=== PATIENT | female | born 1945 | race Caucasian/White ===

== ENCOUNTER 2018-07-23 11:01 | Inpatient (IN) ==
[2018-07-23] MEDS ORDERED: NS 1,000 ML IV ONE ×3 (11:10→13:32)
[2018-07-23 12:21] LABS: BILIRUBIN URINE NEGATIVE (NEGATIVE); BLOOD URINE 4+ (NEGATIVE); CLARITY CLEAR (CLEAR); COLOR YELLOW; GLUCOSE URINE NEGATIVE (NEGATIVE); KETONE URINE 2+(Moderate) mg/dL (NEGATIVE); LEUKOCYTES URINE TRACE (NEGATIVE); NITRITE URINE NEGATIVE (NEGATIVE); PROTEIN URINE TRACE mg/dL (NEGATIVE); URINE BACTERIA 1+ /HFP; URINE EPITHELIAL CELLS <10 /HPF (<10); URINE RBC TNTC /HPF (<10); URINE SOURCE CATH; UROBILINOGEN URINE NORMAL
[2018-07-23 12:26] LABS: BE -1.7 mmoll (-3.0-3.0); BLOOD TYPE ARTERIAL; HCO3-(ACT) 23.6 mmoll (20.0-26.0); INFLUENZA A NEGATIVE (NEGATIVE); INFLUENZA B NEGATIVE (NEGATIVE); METHB 0.9 % (0.0-1.5); O2(CT) 15.8 mL/dL (15.0-23.0); O2HB 96.1 % (95.0-99.0); PCO2(98.6) 27 mmHg (35-45); PO2(98.6) 88 mmHg (60-100); SAMPLE BLOOD; SAO2 98.8 % (95.0-100.0); THB 11.6 g/dL (11.5-17.4); pH(98.6) 7.49 (7.35-7.45)
[2018-07-23 12:29] LABS: ALLEN TEST YES; MODALITY ROOM AIR
[2018-07-23] MEDS ORDERED: ROCEPHIN 1 GM in NS 50 ML IV ONE (12:57)
[2018-07-23 13:11] LABS: INR 1.05; PROTIME 14.2 Seconds (11.0-16.0)
[2018-07-23 13:14] LABS: HEMATOCRIT 30.1 % (37.0-47.0); HEMOGLOBIN 10.6 g/dL (12.0-16.0); IMM GRAN# 0.01 X1000 (0.0-0.04); IMM GRAN% 0.2 % (0.0-0.5); LYMPH# 0.67 X1000 (1.2-3.4); MCH 32.8 PG (27-31); MCHC 35.2 g/dL (33-37); MCV 93.2 FL (81-99); MONO# 0.84 X1000 (0.11-0.59); MONO% 13.7 % (1.7-9.3); NEUT# 4.59 X1000 (1.4-6.5); NEUT% 75.1 % (42.2-75.2); PLT 238 X1000 (130-400); RBC 3.23 XMIL (4.2-5.4); RDW 13.1 % (11.5-14.5); WBC 6.11 X1000 (4.8-10.8)
[2018-07-23 13:20] LABS: ESTIMATED GFR > 60
[2018-07-23 13:28] LABS: AGAP 13; ALKALINE PHOSPHATASE 78 U/L (32-104); BUN 9 mg/dL (8-22); CALCIUM 8.4 mg/dL (8.8-10.2); CHLORIDE 85 mmol/L (98-107); COSMO 237; CREATININE 0.4 mg/dL (0.5-0.9); GLUCOSE 92 mg/dL (70-104); GOT 45 U/L (10-30); GPT 21 U/L (10-36); MAGNESIUM 1.7 mg/dL (1.5-2.7); PHOSPHORUS 2.3 mg/dL (2.7-4.5); POTASSIUM 4.7 mmol/L (3.5-5.1); SODIUM 118 mmol/L (136-145); TCO2 21 mmol/L (25-35); TOTAL PROTEIN 6.4 g/dL (6.3-8.3)
--- NOTE | 2018-07-23 13:38 | PROVIDER DOCUMENTATION ---
This chart was entered by Mary Dale Scribe, acting as scribe for Elliott Nuñez MD. HPI-General Adult - General Chief Complaint: Altered Mental Status Stated Complaint: AMS,WEAK Time Seen by Provider: 07/23/18 11:10 Source: patient, family, EMS Allergies/Adverse Reactions: Patient Allergies Allergy/AdvReac Type Severity Reaction Status Date / Time Penicillins Allergy Mild Unknown Verified 07/23/18 11:09 Home Medications: Home Medication List Medication Instructions Recorded Confirmed Last Taken Type Azelastine 137 Mcg Nasal Freedom 2 spray TERESA BID 05/03/18 05/03/18 05/02/18 09:00 History [Astelin Nasal Freedom] 2 sprays Donepezil HCl 10 mg PO QHS 05/03/18 05/03/18 05/02/18 21:00 History 10mg Fluticasone 27.5 Mcg Nasal Spr 2 spray TERESA DAILY 05/03/18 05/03/18 05/02/18 09: 00 History [Veramyst Nasal Freedom] 2 sprays Hyoscyamine [Levsin] 0.125 mg SL BID 05/03/18 05/03/18 05/02/18 21:00 History 0.125mg Montelukast [Singulair] 10 mg PO QHS 05/03/18 05/03/18 05/02/18 21:00 History 10 mg Oxybutynin [Ditropan] 5 mg PO TID 05/03/18 05/03/18 05/02/18 21:00 History 5mg PRAVAstatin [Pravachol] 20 mg PO DAILY 05/03/18 05/03/18 05/02/18 09:00 History 20mg Alprazolam [Xanax] 0.5 mg PO QHS #30 tab 05/10/18 Unknown Rx Linezolid [Zyvox] 600 mg PO Q12HR #20 tab 05/10/18 Unknown Rx - History of Present Illness -Gen Adult Nature of Presenting Problems: 73 y/o female presents to ED with AMS, confusion, and diarrhea. Family reports she has been more confused than normal the past few days. Pt repeatedly states she is hurting in her groin region. Pt is alert. Location of Pain/Injury: reports: other (groin) Pain Radiation: reports: no radiation Quality of Pain: reports: aching Severity: reports: mild Onset/Duration: reports: unsure, 2 days ago, 3 days ago Timing: reports: still present Context/Activities at Onset: reports: none Modifying Factors: improves with: nothing Associated Symptoms: reports: diarrhea, other (groin pain, AMS, confusion) Similar Symptoms Previously?: Yes (with previous UTI) Recently seen or treated by another doctor?: No Review of Systems - Adult - REVIEW OF SYSTEMS - ADULT Constitutional: reports: other (AMS, confusion). denies: chills, fever Eyes: reports: no symptoms reported Ears, Nose, Mouth & Throat: reports: no symptoms reported Cardiovascular: denies: chest pain, palpitations Respiratory: denies: cough, shortness of breath Gastrointestinal: reports: diarrhea. denies: abdominal pain, nausea, vomiting Genitourinary: reports: no symptoms reported Musculoskeletal: reports: other (groin pain). denies: back pain, joint pain Integumentary: reports: no symptoms reported Neurological: denies: dizziness/vertigo, seizure Psychiatric: reports: no symptoms reported Endocrine: reports: no symptoms reported Hematologic/Lymphatic: reports: no symptoms reported Allergic/Immunologic: reports: no symptoms reported All Other Systems: Reviewed and Negative Past History - Adult - PAST MEDICAL HISTORY-ADULT Review of Records: reports: Old Records Reviewed, Nursing Assessment Review, Medications Reviewed Major Childhood Illnesses: reports: denies history Cardiovascular: reports: HTN Respiratory: reports: cancer Obstetrical/Gynecological: reports: other (breast cancer) Genitourinary: reports: kidney stones Neurological: reports: cancer/tumor (brain), CVA Other Conditions: reports: cataract/glaucoma - PRIOR SURGERIES/PROCEDURES Surgical/Procedure History: reports: BTL, breast (mastectomy), other (L lung, lithrotripsy, cataract removal) - IMMUNIZATION STATUS Childhood Immunizations: See Nurse Assessment Flu Vaccine: See Nurse Assessment - FAMILY HISTORY Family History: reviewed, not pertinent - SOCIAL HISTORY Smoking: non-smoker Substance Use: none/never Alcohol Use Frequency: never Living Situation: family Physical Exam-General - PHYSICAL EXAM-ADULT Initial Vital Signs Reviewed: Yes - CONSTITUTIONAL General Appearance: appears well, alert, no apparent distress, anxious, other ( agitated) - EYES Eyes: pink conjunctivae, other (pinpoint pupils) - HEAD, EARS, NOSE, MOUTH & THROAT HENMT: normocephalic/atraumatic, normal ENT inspection. negative: moist mucous membranes (dry) - NECK Neck: non-tender, full range of motion - RESPIRATORY Respiratory: chest non-tender, lungs clear, normal breath sounds - CARDIOVASCULAR Cardiovascular: normal peripheral pulses, regular rate, rhythm, systolic murmur (07/25) - GASTROINTESTINAL (ABDOMEN) Abdominal Exam: normal bowel sounds, non tender, soft - MUSCULOSKELETAL Back Exam: normal inspection, no CVA tenderness Extremity: normal range of motion, non-tender, normal gait - SKIN Integumentary: normal color, warm/dry, other (port in R upper chest). negative : normal turgor (poor) - NEUROLOGIC Neurologic: no motor/sensory deficits, facial droop (L sided) - PSYCHIATRIC Psych/Mental Status: normal mood/affect, normal thought content, normal thought process, anxious Progress - PLAN OF CARE/RESULTS Progress/Plan/Lab Results: Vital Signs - 8 hr 07/23/18 11:02 Pulse Rate 73 Respiratory Rate 20 Blood Pressure 168/72 O2 Sat by Pulse Oximetry 97 Orders Category Date Time Status Saline Loc NOW Care 07/23/18 11:07 Active CHEST-PORTABLE [RAD] Stat Exams 07/23/18 11:[address] HEAD W/WO CONTRAST [CT] Stat Exams 07/23/18 11:08 Ordered PELVIS [RAD] Stat Exams 07/23/18 11:09 Ordered ABG [RESP] Routine Lab 07/23/18 11:07 Ordered BLOOD CULTURE [BLDCUL] Stat Lab 07/23/18 11:07 Uncollected CBC WITH ELECTRONIC DIFF [HEME] Stat Lab 07/23/18 11:07 Uncollected COMPREHENSIVE METABOLIC PANEL [CHEM] Stat Lab 07/23/18 11:[address] Stat Lab 07/23/18 11:08 Uncollected LACTATE, PLASMA [CHEM] Stat Lab 07/23/18 11:08 Uncollected MAGNESIUM [CHEM] Stat Lab 07/23/18 11:08 Uncollected PRO B-NATRIURETIC PEPTIDE Stat Lab 07/23/18 11:08 Uncollected PROTIME WITH INR [COAG] Stat Lab 07/23/18 11:08 Uncollected TROPONIN T Stat Lab 07/23/18 11:08 Uncollected TSH Stat Lab 07/23/18 11:[address] W/POSS RFLX CULT [URINALYSIS] Stat Lab 07/23/18 11:08 Uncollected phos [PHOSPHORUS] [CHEM] Stat Lab 07/23/18 11:08 Uncollected Ns 1000 ml IV Bolus X1 Med 07/23/18 11:10 Ordered 0.9% Sodium Chloride Inj [Ns] 1,000 ml IV 999 mls/hr EKG [EKG] Stat Ther 07/23/18 11:07 Ordered Result Diagrams: 07/23/18 12:30 07/23/18 12:30 - REASSESSMENT Reassessment #1 Time Reassessed: 13:36 Status: improving (Given NS bolus 1000ml then 100ml/hr. Given IV rocephin. States feels better. Less agitated and confused) - EKG 1 Time of EKG reading by physician:: 11:10 EKG Read and Signed by:: Elliott Nuñez EKG Interpretation (*Must complete 3 of following elements*): Abnormal Rate: 72 Rhythm: Sinus w/ 1st degree AV block [place]: normal QRS: normal [place] Interval: normal ST Wave: non-specific ST changes Comments: Artifact present. -Dr. Nuñez - CONSULTS/PCP/HOSPITALIST Notification #1 *Consult/PCP/Hospitalist*: Kenny paged at 1107 and again 1215 Time Discussed: 12:56 (Dr. Cox's RN says he's been out of town for the last several weeks and still out of town. Yesterday PET scan showed on old sternal fracture and no active malignancy) Consult Disposition: other #2 Consult: penot Time Discussed: 13:37 Consult Disposition: Will see in ED Departure - Departure Date of Disposition Decision: 07/23/18 Time of Disposition Decision: 13:37 DIAGNOSIS: Dehydration with hyponatremia, UTI (urinary tract infection) due to Enterococcus Altered mental status, unspecified Qualifiers: Altered mental status type: delirium Qualified Code(s): R41.0 - Disorientation , unspecified Disposition: ADMITTED INPATIENT 09 Certified Medical Emergency: Emergent Condition: Fair Referrals and Follow-Ups: Erasto Angeles III, MD [NON-STAFF PROVIDER] - - Critical Care Note This patient required my direct & personal management of CC.: Yes Total Time (mins): 40 Critical Care Statement: This patient required my direct personal management to treat or rule out processes, the absence of which, could potentiallly result in sudden, clinically significant life or limb threatening deterioration. Attestation - Physician/ MATTIE Attestation Patient care was provided by Advanced Practice Provider:: No The physician spent face to face time with patient:: Yes Advanced Practice Provider documentation review:: Supervising physician onsite and consulted in the evaluation and care of this patient. The physician did have a face to face encounter with the patient. This chart was documented by the indicated scribe, (Mary Dale Scribe) and accurately reflects the services I performed and decisions made by me, Elliott Nuñez MD, as attested by the provider's signature.
[2018-07-23] MEDS ORDERED: BENADRYL IV ONE (13:39)
[2018-07-23] MEDS ORDERED: HALDOL IV ONE (13:39)
--- NOTE | 2018-07-23 14:31 | Diag Imaging Result Doc PS360 ---
EXAM: CT HEAD W/WO CONTRAST 07/23/2018 HISTORY: ams, hx of brain mets, left facial droop TECHNIQUE: This exam was performed using automated exposure control, adjustment of mA or kV according to patient size, and/or use of iterative reconstruction technique. COMMENT: There is mild generalized cerebral atrophy. There are patchy lucencies throughout the white matter of both hemispheres. No evidence of bleed or abnormal extra-axial fluid collection is present. There is no evidence of mass effect. There is some calcification in the globus pallidus on the left. There is no evidence of abnormal contrast enhancement. Compared to 12/09/2016 the appearance the brain has not changed appreciably. IMPRESSION: Chronic ischemic microvascular disease. No evidence of acute disease or metastatic disease. Given the history further evaluation with MRI may be desirable. Electronically signed by Hunter Valdovinos 07/23/2018 2:29 PM
--- NOTE | 2018-07-23 14:33 | Diag Imaging Result Doc PS360 ---
EXAM: CHEST-1 VIEW 07/23/2018 HISTORY: AMS TECHNIQUE: AP supine chest COMMENT: Compared to the previous study of 05/06/2018 the fluid collection and on the left has apparently resolved. There is still apical pleural thickening and marked volume loss on the left. The right lung is essentially clear. IMPRESSION: Resolution of basilar pleural fluid collection on the left. Electronically signed by Hunter Valdovinos 07/23/2018 2:31 PM
--- NOTE | 2018-07-23 14:34 | Diag Imaging Result Doc PS360 ---
EXAM: PELVIS 07/23/2018 HISTORY: pelvic pain TECHNIQUE: AP pelvis COMMENT: The hip joint spaces appear to be fairly well-maintained. There is some slight osteophyte formation in the right femoral head. The appearance of the pelvis and hips has not changed significantly since 09/15/2013. There is retained contrast medium in the urinary bladder. There is gas throughout the visualized small bowel. Numerous surgical clips are present in the pelvis and lower abdomen. IMPRESSION: Nonspecific pelvis. Electronically signed by Hunter Valdovinos 07/23/2018 2:32 PM
--- NOTE | 2018-07-23 15:01 | EKG Report ---
Test Performed on : 07/23/2018 11:10:06 AM Test Reason : ams Blood Pressure : / mmHG Vent. Rate : 072 BPM Atrial Rate : 072 BPM P-R Int : 272 ms QRS Dur : 070 ms QT Int : 396 ms P-R-T Axes : 065 046 -10 degrees QTc Int : 433 ms Sinus rhythm. with 1st degree AV block. Nonspecific ST and T wave abnormality Abnormal ECG When compared with ECG of 23-JUL-2018 11:09, (Unconfirmed) Sinus rhythm. has replaced Junctional rhythm. Nonspecific T wave abnormality, improved in Anterior leads Unconfirmed Result
[2018-07-23] MEDS ORDERED: TYLENOL PO PRN (18:22)
[2018-07-23] MEDS ORDERED: ZOFRAN IV PRN (18:22)
[2018-07-23] MEDS: NS 1,000 ML IV SCH (18:34)
[2018-07-23] MEDS ORDERED: HALDOL IV PRN (20:11)
[2018-07-23] MEDS ORDERED: SODIUM CHLORIDE 0.9% INJ SCH (20:15)
--- NOTE | 2018-07-23 20:50 | HISTORY AND PHYSICAL ---
PRIMARY CARE PHYSICIAN: Dr. Mike Vivas. CHIEF COMPLAINT: Altered mental status, increased confusion, multiple falls daily for the past 2 weeks according to the friend that was sitting at the bedside and diarrhea. HISTORY OF PRESENTING ILLNESS: This is a 73-year-old female who presents to [facility] ER with a friend stating that she has had increased confusion, multiple falls daily that had been present for the past 2 weeks, diarrhea. Her workup in the emergency room showed a sodium of 118, chloride 85, urinalysis showed negative nitrites but trace white blood cells, 1+ bacteria. Influenza A and B were both negative. We did do a pelvic x-ray due to some hip and pelvic pain from her multiple falls that showed an impression of a nonspecific pelvis, we did do a head CT that just showed chronic ischemic microvascular disease, no evidence of acute disease or metastatic disease. Chest x-ray showed resolution of a basilar pleural fluid collection on the left. She will be admitted for further evaluation and treatment. PAST MEDICAL HISTORY: Of a primary breast cancer, a primary lung cancer, metastatic brain cancer from her lung, hypertension, CVA and kidney stones. PAST SURGICAL HISTORY: Of a lung resection x2, bilateral mastectomy, tonsillectomy and a bilateral tubal ligation and a cataract removal. FAMILY HISTORY: Reviewed and noncontributory. SOCIAL HISTORY: She currently lives at [facility] and denies any tobacco, alcohol or illicit drug use. ALLERGIES: To penicillin. HOME MEDICATIONS: We need to obtain a list and restart as appropriate. We will update and confirm per a nursing order. LABORATORY DATA: Showed a white blood cell count of 6.11, hemoglobin 10.6, hematocrit 30.1, platelets 238,000, PT and INR of 14.2 and 1.05. ABG with a pH of 7.49, pCO2 27, PO2 88, bicarb 23.6 and that was on room air. Sodium 118, potassium 4.7, chloride 85, CO2 21, BUN of 9, creatinine 0.4, glucose 92, phosphorus 2.3, magnesium 1.7. Cardiac enzyme was negative, proBNP of 1158, plasma lactate of 1, TSH of 1.88. Urinalysis was negative with just a trace of white blood cells and 1+ bacteria. Influenza A and B were both negative. Chest x-ray showed resolution of a basilar pleural fluid collection on the left. Head CT showed chronic ischemic microvascular disease. No evidence of acute disease or metastatic disease. Pelvic x-ray showed a nonspecific pelvis. EKG showed sinus rhythm with 1st degree AV block. REVIEW OF SYSTEMS: Unable to obtain from patient due to confusion. PHYSICAL EXAMINATION: On arrival she had a temperature of 97.6 degrees, pulse 73, respirations 20, blood pressure 168/72 saturating 97% on room air. GENERAL: This is a 73-year-old female lying in the bed unable to answer questions at this time. Information obtained from friend sitting at bedside and from ER record. HEENT: Normocephalic, atraumatic. Normal ENT inspection. She had pinpoint pupils. NECK: Normal inspection, normal range of motion. LUNGS: Clear to auscultation bilaterally with equal lung expansion and chest wall movement. HEART: With a systolic murmur 1/6, no rubs or gallops noted. ABDOMEN: Soft, nontender, nondistended. Bowel sounds are present x4 quadrants. MUSCULOSKELETAL: Unable to assess due to patient's confusion. NEUROLOGIC: Unable to obtain a complete due to her confusion but everything appears to be intact at this time. ASSESSMENT: 1. Metabolic encephalopathy. 2. Multiple falls. 3. Hyponatremia. 4. History of metastatic brain cancer from lung. OUR PLAN: She will be admitted to the medical unit at [place], placed on telemetry. O2 per protocol. Placed on normal saline at 75 mL an hour. We will check a BMP in 4 hours. We need to verify and update her home medications and then will restart those as appropriate. She will be on bed rest, place on clear liquid diet at this time and further orders after seen by attending. Dictated by JOURDAN Calvert for Guanaco Blas MD cc: JOURDAN Calvert MD Dr. Alan Walker
[2018-07-23 22:26] LABS: AGAP 10; BUN 5 mg/dL (8-22); CALCIUM 7.6 mg/dL (8.8-10.2); CHLORIDE 91 mmol/L (98-107); COSMO 240; CREATININE 0.5 mg/dL (0.5-0.9); ESTIMATED GFR > 60; GLUCOSE 83 mg/dL (70-104); POTASSIUM 3.7 mmol/L (3.5-5.1); SODIUM 121 mmol/L (136-145); TCO2 21 mmol/L (25-35)
[2018-07-23] MEDS: PROTONIX IV SCH (22:35)
[2018-07-23 23:34] LABS: AGAP 11; BUN 5 mg/dL (8-22); CALCIUM 7.6 mg/dL (8.8-10.2); CHLORIDE 93 mmol/L (98-107); COSMO 244; CREATININE 0.4 mg/dL (0.5-0.9); ESTIMATED GFR > 60; GLUCOSE 83 mg/dL (70-104); POTASSIUM 3.8 mmol/L (3.5-5.1); SODIUM 123 mmol/L (136-145); TCO2 19 mmol/L (25-35)
--- NOTE | 2018-07-24 05:15 | HISTORY AND PHYSICAL ---
ADDENDUM: Briefly, this is a pleasant 73-year-old female coming in with confusion with a low sodium. She has been more confused than usual, also complaining of pain in her groin area. She was found to have a sodium of 118, this has been an issue previously with unclear etiology. Also there was concern of a possible urinary tract infection although it is not clear she has that. She was here in April with a similar issue. She has a history of breast cancer, although she was not at [facility], it looks like she was probably at the other facility. She had hyponatremia. She has a history of breast and lung cancer and metastases from the lung cancer. She was hyponatremic previously, which I think there was some concern that this was related to SIADH. She also had an enterococcal UTI. She did end up requiring Samsca. Apparently she has very agitated. In any case plan will be to admit her, follow her sodium closely, continue gentle hydration and monitor. Her exam is nonfocal, when I saw her later this evening she is actually not very agitated or anything to that effect, but we will see how she does overnight. cc: Guanaco Blas MD
[2018-07-24] MEDS: LOVENOX SUBQ SCH (06:54)
[2018-07-24 06:56] LABS: BASO# 0.01 X1000 (0.0-0.2); BASO% 0.3 % (0.0-0.8); EOS# 0.03 X1000 (0.0-0.7); EOS% 0.9 % (0.0-10.0); HEMATOCRIT 32.4 % (37.0-47.0); IMM GRAN# 0.01 X1000 (0.0-0.04); IMM GRAN% 0.3 % (0.0-0.5); LYMPH# 0.63 X1000 (1.2-3.4); LYMPH% 18.9 % (20.5-51.1); MCH 32.1 PG (27-31); MCV 94.5 FL (81-99); MONO# 0.51 X1000 (0.11-0.59); MONO% 15.3 % (1.7-9.3); MPV 9.8 FL (7.4-10.4); NEUT# 2.14 X1000 (1.4-6.5); NEUT% 64.3 % (42.2-75.2); PLT 235 X1000 (130-400); RBC 3.43 XMIL (4.2-5.4); RDW 13.4 % (11.5-14.5); WBC 3.33 X1000 (4.8-10.8)
[2018-07-24 07:09] LABS: AGAP 11; BUN 5 mg/dL (8-22); CALCIUM 7.9 mg/dL (8.8-10.2); CHLORIDE 96 mmol/L (98-107); COSMO 249; CREATININE 0.4 mg/dL (0.5-0.9); ESTIMATED GFR > 60; GLUCOSE 73 mg/dL (70-104); POTASSIUM 3.5 mmol/L (3.5-5.1); SODIUM 126 mmol/L (136-145); TCO2 20 mmol/L (25-35)
[2018-07-24] MEDS: TYLENOL PO PRN (10:53)
[2018-07-24] MEDS: LIBRAX PO SCH (11:30)
[2018-07-24] MEDS: ASTELIN NASAL SPRAY NAS SCH ×2 (11:31→20:25)
[2018-07-24] MEDS: TEARISOL OPH SOLUTION BOTH EYES SCH ×2 (11:31→20:25)
[2018-07-24] MEDS: PATIENT'S OWN MED PO SCH (11:33)
[2018-07-24] MEDS: FLONASE NAS SCH (11:55)
[2018-07-24] MEDS: DITROPAN PO SCH ×2 (15:32→20:25)
[2018-07-24 18:36] LABS: AGAP 12; BUN 8 mg/dL (8-22); CALCIUM 7.8 mg/dL (8.8-10.2); CHLORIDE 97 mmol/L (98-107); COSMO 262; CREATININE 0.6 mg/dL (0.5-0.9); ESTIMATED GFR > 60; GLUCOSE 157 mg/dL (70-104); POTASSIUM 3.8 mmol/L (3.5-5.1); SODIUM 130 mmol/L (136-145); TCO2 21 mmol/L (25-35)
[2018-07-24] MEDS: NS 1,000 ML IV SCH (20:25)
[2018-07-24] MEDS: PROTONIX IV SCH (20:25)
[2018-07-24] MEDS ORDERED: XANAX PO SCH (21:00)
[2018-07-24] MEDS ORDERED: PRAVACHOL PO SCH (21:00)
[2018-07-24] MEDS ORDERED: ARICEPT PO SCH (21:00)
[2018-07-24] MEDS ORDERED: SINGULAIR PO SCH (21:00)
--- NOTE | 2018-07-25 00:27 | PROGRESS NOTE ---
DATE: 07/24/2017 SUBJECTIVE: Patient has no focal complaints. OBJECTIVE: Blood pressure 113/56, heart rate of 69, respiratory 15, temperature 98.1 degrees, 99% on room air.Cardiovascular: Regular rate and rhythm. Pulmonary: Bilateral breath sounds. Clear to auscultation. GI: Soft, nontender, nondistended. Bowel sounds are positive. LABORATORY DATA: White count 3, hemoglobin and hematocrit 11, 32, platelets 235,000, sodium is up to 126, which is much improved. Her physical exam is unremarkable. PROBLEM LIST: 1. 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 She has responded to Samsca in the past but overall she has improved. We will continue gentle hydration and monitor her sodium levels. 2. Metabolic encephalopathy. She seems to be overall improving, mental status seems to be slowly improving. 3. Anemia stable. DISPOSITION: Pending her clinical status. I think if her sodium is better tomorrow she is possibly able to go home. cc: Guanaco Blas MD
[2018-07-25] MEDS: NS 1,000 ML IV SCH ×2 (04:42→10:42)
[2018-07-25] MEDS: LOVENOX SUBQ SCH (06:36)
[2018-07-25] MEDS: TYLENOL PO PRN (06:56)
[2018-07-25 07:00] LABS: BASO# 0.01 X1000 (0.0-0.2); BASO% 0.2 % (0.0-0.8); EOS# 0.04 X1000 (0.0-0.7); EOS% 0.6 % (0.0-10.0); HEMATOCRIT 33.2 % (37.0-47.0); HEMOGLOBIN 11.3 g/dL (12.0-16.0); IMM GRAN# 0.01 X1000 (0.0-0.04); IMM GRAN% 0.2 % (0.0-0.5); LYMPH# 0.65 X1000 (1.2-3.4); LYMPH% 10.1 % (20.5-51.1); MCH 32.7 PG (27-31); MONO# 0.83 X1000 (0.11-0.59); MONO% 12.8 % (1.7-9.3); MPV 9.8 FL (7.4-10.4); NEUT# 4.92 X1000 (1.4-6.5); NEUT% 76.1 % (42.2-75.2); PLT 252 X1000 (130-400); RBC 3.46 XMIL (4.2-5.4); RDW 13.6 % (11.5-14.5); WBC 6.46 X1000 (4.8-10.8)
[2018-07-25 07:24] LABS: AGAP 11; BUN 8 mg/dL (8-22); CALCIUM 7.8 mg/dL (8.8-10.2); CHLORIDE 100 mmol/L (98-107); COSMO 260; CREATININE 0.4 mg/dL (0.5-0.9); ESTIMATED GFR > 60; GLUCOSE 88 mg/dL (70-104); POTASSIUM 3.5 mmol/L (3.5-5.1); SODIUM 131 mmol/L (136-145); TCO2 20 mmol/L (25-35)
[2018-07-25] MEDS: TEARISOL OPH SOLUTION BOTH EYES SCH (10:41)
[2018-07-25] MEDS: DITROPAN PO SCH ×2 (10:41→15:24)
[2018-07-25] MEDS: LIBRAX PO SCH (10:41)
[2018-07-25] MEDS: ASTELIN NASAL SPRAY NAS SCH (10:41)
[2018-07-25] MEDS: PATIENT'S OWN MED PO SCH (10:42)
[2018-07-25] MEDS: FLONASE NAS SCH (10:42)
[2018-07-25] MEDS ORDERED: SODIUM CHLORIDE PO ONE (11:42)
--- NOTE | 2018-07-25 14:33 | DISCHARGE SUMMARY ---
ADMISSION DATE: 07/23/2018 DISCHARGE DATE: DIAGNOSES: 1. Symptomatic hyponatremia, possibly syndrome of inappropriate antidiuretic hormone related to cancer. 2. Metabolic encephalopathy. 3. Anemia. 4. Primary breast cancer, primary lung cancer, metastatic cancer to the brain. HISTORY AND HOSPITAL COURSE: Briefly, this is a 73-year-old female with history of hyponatremia, lung cancer, getting treatment per Dr. Frank, who came in for hyponatremia. She has had this issue before. This time, she presented with a sodium of 118. After normal saline though, improved to 121. That was 9 hours later, so she had only corrected about 3. The following day, she went up to 123. The following day, she went up to 126. The day of discharge, she is about 131 and asymptomatic. When I saw her on 07/23/2018, she did not seem symptomatic. Reportedly though, she was very confused. Her urine electrolytes showed a urine sodium of 27, which is a little bit on the low side, but her urine osmolalities were 577. There was a question of a UTI, but her urine and blood cultures were negative. In any case, she was felt stable for discharge on 07/24/2018. Her sodium had come up. I did recommend fluid restriction and sodium chloride tablets and followup sodium this week with Dr. Frank. DISCHARGE MEDICATIONS: Donepezil 20, Singulair 10 at bedtime, Astelin 2 b.i.d., Librax 1 daily, Tarceva 100 daily, fluticasone daily, glycerin p.r.n., Ditropan 5 t.i.d., Pravachol 20 daily, Xanax 0.5 at bedtime, and sodium chloride will do 500 mg with a 1500 fluid restriction free water. FOLLOWUP: Follow up with Dr. Frank. DISCHARGE CONDITION: Stable. Continue to monitor closely. TIME SPENT: A 32-minute discharge. cc: Guanaco Blas MD
[2018-07-25 15:29] VITALS: BP 99/47
[2018-07-25] MEDS ORDERED: PROTONIX PO SCH (21:00)
== END 2018-07-25 16:14 | DRG 643 ==
LOC: P.ED 11:01 → P.EDIPHOLD 19:26
PROVIDERS: ATTEND Internal Medicine
CPT/HCPCS: 51701; 70470; 71010; 71045; 72170; 80048; 80053; 81001; 82805; 82948; 83605; 83735; 83880; 83935; 84100; 84300; 84443; 84484; 85025; 85610; 87040; 87088; 87275; 87276; 87804; 93005; 94761; 96361; 96365; 96375; 99285; A9270; C9113; J0696; J1200; J1630; J1650; J7030; Q9967; S0164; XXXXX

== ENCOUNTER 2019-06-05 11:28 | Inpatient (IN) ==
[2019-06-05 12:26] LABS: HEMATOCRIT 39.2 % (37.0-47.0); HEMOGLOBIN 13.1 g/dL (12.0-16.0); LYMPH# 0.13 X1000 (1.2-3.4); LYMPH% 2.2 % (20.5-51.1); MCHC 33.4 g/dL (33-37); MCV 95.8 FL (81-99); MONO# 0.19 X1000 (0.11-0.59); MONO% 3.2 % (1.7-9.3); MPV 9.9 FL (7.4-10.4); NEUT# 5.54 X1000 (1.4-6.5); NEUT% 94.6 % (42.2-75.2); PLT 199 X1000 (130-400); RBC 4.09 XMIL (4.2-5.4); RDW 13.4 % (11.5-14.5); WBC 5.86 X1000 (4.8-10.8)
[2019-06-05 12:31] LABS: INR 1.16
[2019-06-05 12:32] LABS: PTT 33.8 Seconds (22.3-41.8)
[2019-06-05 12:45] LABS: ALBUMIN 4.5 g/dL (3.5-5.0); CALCIUM 8.8 mg/dL (8.8-10.2); CREATININE 1.1 mg/dL (0.5-0.9); POTASSIUM 4.1 mmol/L (3.5-5.1); TOTAL BILIRUBIN 1.42 mg/dL (0.20-1.00); TOTAL PROTEIN 6.7 g/dL (6.3-8.3)
--- NOTE | 2019-06-05 12:46 | Diag Imaging Result Doc PS360 ---
CHEST-PORTABLE - 06/05/2019 INDICATION: ams COMPARISON: 07/23/2018 FINDINGS: There is a right chest port in good position. Stable surgical clips at the chest wall bilaterally. Stable surgical clips and opacification at the left upper lobe. Stable moderate cardiomegaly. No infiltrates. No large pleural effusion. IMPRESSION: Stable cardiomegaly. No acute process. Electronically signed by Del Malcolm 06/05/2019 12:44 PM
[2019-06-05 13:09] LABS: CK INDEX 2.1 (0.0-2.5); CK-MB 3.92 ng/mL (0.0-5.0)
[2019-06-05] MEDS ORDERED: NS 1,000 ML IV ONE (13:09)
--- NOTE | 2019-06-05 15:22 | EKG Report ---
Test Performed on : 06/05/2019 11:44:55 AM Test Reason : ams Blood Pressure : / mmHG Vent. Rate : 084 BPM Atrial Rate : 084 BPM P-R Int : 220 ms QRS Dur : 080 ms QT Int : 368 ms P-R-T Axes : 089 029 -49 degrees QTc Int : 434 ms Sinus rhythm. with 1st degree AV block. with premature atrial complexes. ST & T wave abnormality, consider inferior ischemia ST & T wave abnormality, consider anterolateral ischemia Abnormal ECG When compared with ECG of 23-JUL-2018 11:10, premature atrial complexes. are now present T wave inversion more evident in Inferior leads T wave inversion now evident in Anterolateral leads Unconfirmed Result
--- NOTE | 2019-06-05 16:13 | Diag Imaging Result Doc PS360 ---
CT HEAD W/WO CONTRAST - 06/05/2019 INDICATION: lethargic, slurred speech, know brain mets TECHNIQUE: COMPARISON: 07/23/2018 FINDINGS: There is grossly stable moderate periventricular white matter hypodensity compatible with gliosis, likely due to chronic microvascular ischemia. No intracranial mass or hemorrhage. There is no abnormal contrast enhancement. The skull is intact. There is chronic sinusitis of the right sphenoid sinus, stable from prior. IMPRESSION: No acute disease or change from prior. This exam was performed using automated exposure control, adjustment of mA or kV according to patient size, and/or use of iterative reconstruction technique Electronically signed by Del Malcolm 06/05/2019 4:11 PM
[2019-06-05 16:26] LABS: URINE SOURCE CLEAN CATCH
--- NOTE | 2019-06-05 16:31 | PROVIDER DOCUMENTATION ---
This chart was entered by Jyoti Kaufman Scribe, acting as scribe for Elliott Nuñez MD. HPI-General Adult - General Chief Complaint: Abnormal Lab[s] Stated Complaint: "DISORIENTED, WEAK, IBS PROBLEMS...." Time Seen by Provider: 06/05/19 13:00 Source: patient, family (daughter) Allergies/Adverse Reactions: Patient Allergies Allergy/AdvReac Type Severity Reaction Status Date / Time Penicillins Allergy Mild Unknown Verified 06/05/19 13:10 Home Medications: Home Medication List Medication Instructions Recorded Confirmed Last Taken Type Azelastine 137 Mcg Nasal Dunlap 2 spray TERESA BID 05/03/18 06/05/19 06/04/19 History [Astelin Nasal [place]lap] Donepezil HCl 10 mg PO BID 05/03/18 06/05/19 06/05/19 History Fluticasone 27.5 Mcg Nasal Spr 2 spray TERESA DAILY 05/03/18 06/05/19 06/05/19 History [Veramyst Nasal [place]] Montelukast [Singulair] 10 mg PO QHS 05/03/18 06/05/19 06/04/19 History Oxybutynin [Ditropan] 5 mg PO TID@0900,1500,2100 05/03/18 06/05/19 06/05/19 History PRAVAstatin [Pravachol] 20 mg PO DAILY 05/03/18 06/05/19 06/04/19 History Alprazolam [Xanax] 0.5 mg PO QHS #30 tab 05/10/18 06/05/19 06/04/19 Rx Chlordiazepoxide/Clidinium [Librax] 1 cap PO BID 07/23/18 06/05/19 06/05/19 History Erlotinib HCl [Tarceva] 100 mg PO DAILY 07/23/18 06/05/19 06/05/19 History Glycerin/Propylene Glycol [Soothe 1 drop BOTH EYES BID 07/24/18 06/05/19 06/04/19 History Lubricant Eye Drops] Sodium Chloride 500 mg PO BID #60 tab 07/25/18 06/05/19 06/05/19 Rx - History of Present Illness -Gen Adult Nature of Presenting Problems: Patient is a 74 year old female who presents with daughter for diarrhea, weakness and being disoriented. Daughter states symptoms started yesterday. Daughter reports history of IBS, low sodium and lung cancer with mets to the brain. Daughter states patient had cancer years ago and received radiation to her brain. Daughter reports last PET scan was in March [address] Frank. Patient denies pain, cough, nausea, vomiting and urinary symptoms. Quality of Pain: reports: none Severity: reports: mild Onset/Duration: reports: 24 hours ago Timing: reports: still present, getting worse Context/Activities at Onset: reports: light activity Associated Symptoms: reports: diarrhea, weakness, other (disoriented) Similar Symptoms Previously?: Yes Recently seen or treated by another doctor?: Yes Review of Systems - Adult - REVIEW OF SYSTEMS - ADULT Constitutional: reports: no symptoms reported Eyes: reports: no symptoms reported Ears, Nose, Mouth & Throat: reports: no symptoms reported Cardiovascular: reports: no symptoms reported Respiratory: reports: no symptoms reported Gastrointestinal: reports: see HPI, diarrhea. denies: abdominal pain, nausea, vomiting Genitourinary: reports: no symptoms reported Musculoskeletal: reports: see HPI, muscle weakness. denies: back pain, neck pain Integumentary: reports: no symptoms reported Neurological: reports: see HPI, other (AMS - disoriented). denies: headache/migraines, syncope Psychiatric: reports: no symptoms reported Endocrine: reports: no symptoms reported Hematologic/Lymphatic: reports: no symptoms reported Allergic/Immunologic: reports: no symptoms reported All Other Systems: Reviewed and Negative Past History - Adult - PAST MEDICAL HISTORY-ADULT Review of Records: reports: Old Records Reviewed, Nursing Assessment Review, Medications Reviewed, Social history reviewed & non-contributory. Major Childhood Illnesses: reports: denies history Cardiovascular: reports: HTN Respiratory: reports: cancer (lungs with mets to brain) Gastrointestinal: reports: denies history Obstetrical/Gynecological: reports: other (breast cancer) Genitourinary: reports: kidney stones Musculoskeletal: reports: denies history Neurological: reports: cancer/tumor (brain), CVA Endocrine/Immune: reports: denies history Other Conditions: reports: cataract/glaucoma - PRIOR SURGERIES/PROCEDURES Surgical/Procedure History: reports: BTL, breast (mastectomy), other (L lung, lithrotripsy, cataract removal) - IMMUNIZATION STATUS Childhood Immunizations: See Nurse Assessment Flu Vaccine: See Nurse Assessment - FAMILY HISTORY Family History: reviewed, not pertinent - SOCIAL HISTORY Smoking: denies Substance Use: denies Physical Exam-General - PHYSICAL EXAM-ADULT Initial Vital Signs Reviewed: Yes - CONSTITUTIONAL General Appearance: alert, no apparent distress, lethargic. negative: obtunded - RESPIRATORY Respiratory: chest non-tender, lungs clear, normal breath sounds. negative: crackles, rhonchi - CARDIOVASCULAR Cardiovascular: normal peripheral pulses, regular rate, rhythm. negative: tachycardia - GASTROINTESTINAL (ABDOMEN) Abdominal Exam: normal bowel sounds, soft, tenderness (mild upper abdominal tenderness with deep palpation). negative: guarding - MUSCULOSKELETAL Extremity: other (1 + pitting edema to bilateral lower extremities.). negative: deformity, erythema - SKIN Integumentary: normal color, warm/dry, other (decrease skin turgor.). negative: diaphoresis, pallor - NEUROLOGIC Neurologic: other (slurred speech.) - PSYCHIATRIC Psych/Mental Status: other (lethargic) Progress - PLAN OF CARE/RESULTS Progress/Plan/Lab Results: Vital Signs - 8 hr 06/05/19 11:34 Temperature 97.3 F L Pulse Rate 86 Respiratory Rate 18 Blood Pressure 90/53 O2 Sat by Pulse Oximetry 96 Laboratory Results - last 24 hr 06/05/19 06/05/19 06/05/19 11:51 11:57 11:57 WBC 5.86 RBC 4.09 L Hgb 13.1 Hct 39.2 MCV 95.8 MCH 32.0 H MCHC 33.4 RDW Std Deviation 13.4 Plt Count 199 MPV 9.9 Immature Gran % (Auto) 0.0 Neut % (Auto) 94.6 H Lymph % (Auto) 2.2 L [place] % (Auto) 3.2 Eos % (Auto) 0.0 Baso % (Auto) 0.0 Immature Gran # (Auto) 0.00 Neut # (Auto) 5.54 Lymph # (Auto) 0.13 L [place] # (Auto) 0.19 Eos # (Auto) 0.00 Baso # (Auto) 0.00 PT INR PTT (Actin FS) Sodium 136 Potassium 4.1 Chloride 95 L Carbon Dioxide 22 L Anion Gap 19 BUN 21 Creatinine 1.1 H Estimated GFR/1.73 m2 49 BUN/Creatinine Ratio 19 Glucose 107 H POC Glucose 117 H Calculated Osmolality 275 Calcium 8.8 Total Bilirubin 1.42 H AST 25 ALT 16 Alkaline Phosphatase 67 Creatine Kinase 183 H Troponin T Total Protein 6.7 Albumin 4.5 Globulin 2.2 Albumin/Globulin Ratio 2.0 06/05/19 06/05/19 11:57 11:57 WBC RBC Hgb Hct MCV MCH MCHC RDW Std Deviation Plt Count MPV Immature Gran % (Auto) Neut % (Auto) Lymph % (Auto) [place] % (Auto) Eos % (Auto) Baso % (Auto) Immature Gran # (Auto) Neut # (Auto) Lymph # (Auto) [place] # (Auto) Eos # (Auto) Baso # (Auto) PT 15.0 INR 1.16 PTT (Actin FS) 33.8 Sodium Potassium Chloride Carbon Dioxide Anion Gap BUN Creatinine Estimated GFR/1.73 m2 BUN/Creatinine Ratio Glucose POC Glucose Calculated Osmolality Calcium Total Bilirubin AST ALT Alkaline Phosphatase Creatine Kinase Troponin T 0.016 Total Protein Albumin Globulin Albumin/Globulin Ratio Orders Category Date Time Status Cardiac Monitoring DIRECTED Care 06/05/19 11:40 Active Finger Stick Blood Sugar (ED) DIRECTED Care 06/05/19 11:40 Completed Oxygen Therapy- ED Nursing DIRECTED Care 06/05/19 11:40 Active Saline Loc NOW Care 06/05/19 11:40 Active CHEST-PORTABLE [RAD] Stat Exams 06/05/19 11:40 Completed ALCOHOL BLOOD Stat Lab 06/05/19 11:57 Received CBC WITH ELECTRONIC DIFF [HEME] Stat Lab 06/05/19 11:57 Completed CK PROFILE [SP CHEM] Stat Lab 06/05/19 11:57 Results COMPREHENSIVE METABOLIC PANEL [CHEM] Stat Lab 06/05/19 11:57 Results LACTATE, PLASMA [CHEM] Stat Lab 06/05/19 11:57 Received PROTIME WITH INR [COAG] Stat Lab 06/05/19 11:57 Completed PTT [COAG] Stat Lab 06/05/19 11:57 Completed TROPONIN T Stat Lab 06/05/19 11:57 Completed Altered Mental Status Stat Oth 06/05/19 11:40 Ordered EKG [EKG] Stat Ther 06/05/19 11:40 Ordered Result Diagrams: 06/05/19 11:57 06/05/19 11:57 - EKG 1 Time of EKG reading by physician:: 11:44 EKG Read and Signed by:: Elliott Nuñez EKG Interpretation (*Must complete 3 of following elements*): Abnormal Rate: 84 Rhythm: normal sinus rhythm with 1st degree AV block QRS: LVH (with ST changes) Comments: no STEMI - XRAY 1 XRAY Study: Chest Impression: See EMR Report ( CHEST-PORTABLE - 06/05/2019 INDICATION: ams COMPARISON: 07/23/2018 FINDINGS: There is a right chest port in good position. Stable surgical clips at the chest wall bilaterally. Stable surgical clips and opacification at the left upper lobe. Stable moderate cardiomegaly. No infiltrates. No large pleural effusion. IMPRESSION: Stable cardiomegaly. No acute process. Electronically signed by Del Malcolm 06/05/2019 12:44 PM 06/05/19 1244 Interpreting Physician: Del Malcolm MD Dictated Date/Time: 06/05/19 1237 cc: Elliott Nuñez MD; Mike Vivas) - CT/MRI 1 CT Study: Head Impression: Abnormal ( CT HEAD W/WO CONTRAST - 06/05/2019 INDICATION: lethargic, slurred speech, know brain mets TECHNIQUE: COMPARISON: 07/23/2018 FINDINGS: There is grossly stable moderate periventricular white matter hypodensity compatible with gliosis, likely due to chronic microvascular ischemia. No intracranial mass or hemorrhage. There is no abnormal contrast enhancement. The skull is intact. There is chronic sinusitis of the right sphenoid sinus, stable from prior. IMPRESSION: No acute disease or change from prior. This exam was performed using automated exposure control, adjustment of mA or kV according to patient size, and/or use of iterative reconstruction technique Electronically signed by Del Malcolm 06/05/2019 4:11 PM 06/05/19 1611 Interpreting Physician: Del Malcolm MD Dictated Date/Time: 06/05/19 1556 cc: Elliott Nuñez MD; Mike Vivas), Need Further Study, See EMR Report - CONSULTS/PCP/HOSPITALIST Notification #1 *Consult/PCP/Hospitalist*: lubrication technician Time Discussed: 15:36 Reason/Comments: Dr. Nuñez consulted with lubrication technician about patient. Consult Disposition: other (lubrication technician states patient was given contrast via port and the contrast leaked into patient's chest wall.) #2 Consult: JOURDAN Delong for Hospitalist Time Discussed: 16:05 Reason/Comments: Dr. Nuñez consulted with Sindi about patient. Consult Disposition: Will see in ED, Admit Departure - Departure Date of Disposition Decision: 06/05/19 Time of Disposition Decision: 16:05 DIAGNOSIS: Lung cancer metastatic to brain, Resistance pressure on flushing of totally implanted venous access device Altered mental status Qualifiers: Altered mental status type: transient alteration of awareness Qualified Code(s): R40.4 - Transient alteration of awareness Disposition: ADMITTED INPATIENT 09 Certified Medical Emergency: Emergent Condition: Stable Referrals and Follow-Ups: Mike Vivas [Primary Care Provider] - - Critical Care Note This patient required my direct & personal management of CC.: No Attestation - Physician/ MATTIE Attestation Patient care was provided by Advanced Practice Provider:: No The physician spent face to face time with patient:: Yes Advanced Practice Provider documentation review:: Supervising physician onsite and consulted in the evaluation and care of this patient. The physician did have a face to face encounter with the patient. This chart was documented by the indicated scribe, (Jyoti Kaufman Scribe) and accurately reflects the services I performed and decisions made by , Elliott Nuñez MD, as attested by the provider's signature.
[2019-06-05 16:38] LABS: BILIRUBIN URINE NEGATIVE (NEGATIVE); BLOOD URINE SMALL (NEGATIVE); COLOR YELLOW; GLUCOSE URINE NEGATIVE (NEGATIVE); KETONE URINE TRACE mg/dL (NEGATIVE); LEUKOCYTES URINE TRACE (NEGATIVE); NITRITE URINE NEGATIVE (NEGATIVE); PH URINE 5.5; PROTEIN URINE TRACE mg/dL (NEGATIVE); SP GRAVITY URINE 1.025; TURBIDITY URINE CLEAR (CLEAR); UROBILINOGEN URINE NORMAL (NORMAL)
[2019-06-05 16:39] LABS: UR EPITHELIAL CELLS <10 /HPF (<10); URINE BACTERIA NEGATIVE /HPF; URINE RBC <10 /HPF (<10); URINE WBC <10 /HPF (<10)
[2019-06-05 16:55] LABS: UR AMPHETAMINES QUAL NONE DETECTED (NONE DETECT); UR BARBITUATES QUAL NONE DETECTED (NONE DETECT); UR BENZODIAZEPIN QUAL PRESUMPTIVE POSITIVE (NONE DETECT); UR CANNABINOIDS QUAL NONE DETECTED (NONE DETECT); UR COCAINE QUAL NONE DETECTED (NONE DETECT); UR METHADONE QUAL NONE DETECTED (NONE DETECT); UR OPIATES QUAL NONE DETECTED (NONE DETECT); UR OXYCODONE QUAL NONE DETECTED (NONE DETECT); UR PCP QUAL NONE DETECTED (NONE DETECT)
--- NOTE | 2019-06-05 18:29 | HISTORY AND PHYSICAL ---
PRIMARY CARE PROVIDER: Dr. Mike Vivas. ONCOLOGIST: Dr. Tio Frank. CHIEF COMPLAINT: IBS and "out of sorts." HISTORY OF PRESENT ILLNESS: Ms. Allred is a 74-year-old female with a past medical history of metastatic [id number] lung cancer to the brain, primary breast cancer, known to Dr. Frank, IBS; couple of recent admissions for hyponatremia, hypertension, CVA, and kidney stones. She reported last night she had 3 bouts of watery diarrhea. Her [id number] who is at the bedside had seen her last night. She felt that at that time she was "out of sorts" secondary to not being able to keep up with the amounts of diarrhea she was having. They came back to check on her in the morning. She had another episode of watery diarrhea and was even "more out of sorts." They assumed that she was hyponatremic again, so they brought her to the ED. Workup in the ED did not reveal any electrolyte abnormalities. It did show a slightly elevated creatinine at 1.1. Head CT did not show anything acute or changes from prior. She is currently awake, alert, and oriented x4. Follows commands. Moves all extremities. We will admit her and initiate IV fluids. Unfortunately, while she was getting a head CT with contrast, her MediPort infiltrated. We will consult Dr. Barth, and Dr. Hernandez will talk with Dr. Frank to see if he would like her port replaced while she is in-house or whether it can be done outpatient. PAST MEDICAL HISTORY: 1. Primary breast cancer with [id number] lung cancer with brain metastasis. The patient is followed by Dr. Frank. 2. CVA. 3. Kidney stones. 4. Hypertension. PAST SURGICAL HISTORY: 1. Lung resection x2. 2. Bilateral mastectomies with breast reduction. 3. Tonsillectomy. SOCIAL HISTORY: The patient lives at [facility]. No alcohol, tobacco, or illicit drug use. FAMILY HISTORY: Negative for any hematologic or oncologic problems. HOME MEDICATIONS: 1. Xanax 0.5 mg p.o. at bedtime. 2. Astelin nasal spray 2 sprays nasal b.i.d. 3. Librax 1 capsule p.o. b.i.d. 4. Donepezil 10 mg p.o. b.i.d. 5. Tarceva 100 mg p.o. daily. 6. Veramyst 2 sprays nasal daily. 7. 1 drop both eyes b.i.d. 8. Singulair 10 mg p.o. at bedtime. 9. Ditropan 5 mg p.o. t.i.d. 10. Pravachol 20 mg p.o. daily. 11. Sodium chloride 500 mg p.o. b.i.d. ALLERGY: Penicillin, unknown reaction. REVIEW OF SYSTEMS: Twelve-point review of systems completely negative except for those mentioned in HPI. PHYSICAL EXAMINATION: VITAL SIGNS: Temperature was 97.3 degrees, heart rate 86, respirations 18, blood pressure 107/78, O2 is 96% on room air. GENERAL: Ms. Allred is a pleasant 74-year-old female who is sitting up in the bed in no acute distress. HEENT: Atraumatic, normocephalic. PERRL. Mucous membranes are extremely dry. NECK: Supple. Trachea midline. CARDIOVASCULAR: S1, S2 appreciated. I could not appreciate any murmurs, gallops, or rubs. RESPIRATORY: Lung sounds clear bilaterally. GI: Soft, nontender, nondistended. Positive bowel sounds in 4 quadrants. LOWER EXTREMITIES: Negative for edema. NEUROLOGIC: Patient is awake, alert, and oriented x4. Follows commands. Moves all extremities. DIAGNOSTIC DATA: Head CT, no acute disease or change from prior. LABORATORY DATA: White count 5, hemoglobin and hematocrit 13 and 39, platelet count 199,000. Sodium 136, potassium 4.1, BUN 21, creatinine 1.1. Blood glucose is 107. Magnesium 1.9, total bilirubin 1.42. Plasma lactate was 2.3. Urinalysis was negative for bacteria and negative for nitrites. Tox screen positive for benzodiazepines. She does take Xanax at home. ASSESSMENT AND PLAN: 1. Altered mental status. seems resolved after some IV fluids in the ER, believed to be secondary to dehydration. The patient's head CT did not show anything acute and no acute changes. She does appear to be clinically dehydrated. She had multiple bouts of diarrhea. 2. Clinical dehydration. We will continue with IV fluids. 3. Acute kidney injury. We will continue with IV fluids. Recheck her kidney function in the a.m. 4. Irritable bowel syndrome with multiple bouts of diarrhea yesterday and an episode today. No more since she has been in the ED. If she has any more episodes, we will check stool studies. 5. Known breast cancer, lung cancer, and brain metastasis. Dr. Hernandez will speak with Dr. Frank. 6. Malfunction of her MediPort with IV contrast. We will consult Dr. Barth and start a peripheral IV. 7. Further recommendation to follow physician evaluation, laboratory and diagnostic data. Dictated by JOURDAN Capone for Elvis Goel MD cc: MD Tio Felder MD [facility]
--- NOTE | 2019-06-05 20:59 | HISTORY AND PHYSICAL ---
ADDENDUM: Patient seen and examined by me [id number]. All the laboratory, vital signs and images were reviewed. Patient presented to emergency department due to diarrhea, generalized weakness and confusion, she has a history of metastatic non-small cell lung cancer to the brain, primary breast cancer and she is following Dr. Frank, apparently she has a history of IBS and she has been admitted couple times for hyponatremia, she has a history also of hypertension, CVA and kidney stones, she had 3 large bowel movements yesterday and 1 today in the morning and after that she has not been having any kind of bowel movements, we check the laboratory that did not show any electrolyte abnormality. She does have an acute kidney injury and an elevated CK level. Plasma lactate also is 2.3, we will keep this patient probably for 1 or 2 days. She needs to be rehydrated and we will get some lab work done, it looks like also this patient had a problem with the Port-A-Cath when they tried to inject some contrast through it, I communicated with Dr. Frank, which is her primary oncologist and he said that from now on we cannot use the Port-A- Cath and he will check on that as an outpatient. In the meantime I will put this patient on IV fluids and I will put this patient on most of her home medications, I will reevaluate her lab work in the morning. I agree with the rest of the nurse practitioner's assessment and plan. On my physical exam she was completely awake, alert and oriented x3. She does have generalized weakness but no focal deficits. cc: Elvis Goel MD
[2019-06-05] MEDS: ARICEPT PO SCH (22:08)
[2019-06-05] MEDS: NS 1,000 ML IV SCH (22:08)
[2019-06-05] MEDS: DITROPAN PO SCH (22:08)
[2019-06-05] MEDS: ASTELIN NASAL SPRAY NAS SCH (22:09)
[2019-06-05] MEDS: SINGULAIR PO SCH (22:09)
[2019-06-05] MEDS: XANAX PO SCH (22:09)
[2019-06-05] MEDS: SYSTANE EYE DROPS BOTH EYES SCH (22:10)
[2019-06-05] MEDS: LIBRAX PO SCH (22:11)
[2019-06-05] MEDS: SODIUM CHLORIDE PO SCH (22:12)
[2019-06-06] MEDS: NS 1,000 ML IV SCH ×2 (05:56→10:38)
[2019-06-06 07:14] LABS: BASO# 0.01 X1000 (0.0-0.2); BASO% 0.4 % (0.0-0.8); EOS# 0.01 X1000 (0.0-0.7); EOS% 0.4 % (0.0-10.0); HEMATOCRIT 33.9 % (37.0-47.0); HEMOGLOBIN 11.3 g/dL (12.0-16.0); LYMPH# 0.35 X1000 (1.2-3.4); LYMPH% 13.5 % (20.5-51.1); MCH 32.9 PG (27-31); MCHC 33.3 g/dL (33-37); MCV 98.8 FL (81-99); MONO# 0.52 X1000 (0.11-0.59); MPV 9.7 FL (7.4-10.4); NEUT# 1.71 X1000 (1.4-6.5); NEUT% 65.7 % (42.2-75.2); PLT 159 X1000 (130-400); RBC 3.43 XMIL (4.2-5.4); RDW 13.9 % (11.5-14.5)
[2019-06-06 08:35] LABS: AGAP 16; ALB/GLOB RATIO 1.5; ALBUMIN 3.4 g/dL (3.5-5.0); ALKALINE PHOSPHATASE 52 U/L (32-104); BUN 17 mg/dL (8-22); CALCIUM 7.6 mg/dL (8.8-10.2); CHLORIDE 101 mmol/L (98-107); COSMO 270; CREATININE 0.6 mg/dL (0.5-0.9); ESTIMATED GFR > 60; GLUCOSE 76 mg/dL (70-104); GOT 26 U/L (10-30); GPT 14 U/L (10-36); POTASSIUM 3.5 mmol/L (3.5-5.1); SODIUM 135 mmol/L (136-145); TCO2 18 mmol/L (25-35); TOTAL BILIRUBIN 1.01 mg/dL (0.20-1.00); TOTAL PROTEIN 5.7 g/dL (6.3-8.3)
[2019-06-06] MEDS ORDERED: PATIENT'S OWN MED PO SCH ×2 (09:00→21:00)
[2019-06-06] MEDS: ARICEPT PO SCH ×2 (09:12→20:45)
[2019-06-06] MEDS: SODIUM CHLORIDE PO SCH ×2 (09:13→20:45)
[2019-06-06] MEDS: LIBRAX PO SCH ×2 (09:13→20:45)
[2019-06-06] MEDS: PRAVACHOL PO SCH (09:13)
[2019-06-06] MEDS: DITROPAN PO SCH ×3 (09:15→20:45)
[2019-06-06] MEDS: FLONASE NAS SCH (09:16)
[2019-06-06] MEDS: ASTELIN NASAL SPRAY NAS SCH ×2 (09:16→21:10)
[2019-06-06] MEDS: SYSTANE EYE DROPS BOTH EYES SCH ×2 (09:16→20:45)
--- NOTE | 2019-06-06 15:15 | PROGRESS NOTE ---
DATE: 06/06/2019 SUBJECTIVE: This patient is lying comfortably in bed. She has been having some liquid bowel movements but they are small and as per the patient, this is quite normal for her. She has a history of IBS. The kidney function recovered completely. Her creatinine decreased from 1.1 to 0.6 and BUN from 21 to 17. We will continue to monitor. Hopefully, this patient can be discharged tomorrow. OBJECTIVE: Vital Signs: Temperature 98.6 degrees, pulse 68, respiratory rate 14, blood pressure 130/65, oxygen saturation 94% on room air. HEENT: Head normocephalic. No trauma. PERRLA. Neck: Supple. No JVD. No masses. Central trachea. Chest: Clear to auscultation. No wheezing. No rales. Abdomen: Soft, nontender, nondistended. No hepatosplenomegaly. Extremities: No edema, no clubbing, no cyanosis. Neurological Examination: The patient is awake, alert. She is oriented x4. She is following commands. Laboratory: WBC 2.6, hemoglobin 11.3, hematocrit 33.9, platelets 159,000. Sodium 135, potassium 3.5, chloride 101, bicarbonate 18, BUN 17, creatinine 0.6, glucose 76, calcium 7.6. Total bilirubin 1, albumin 3.4. ASSESSMENT AND PLAN: 1. Altered mental status, resolved after some intravenous fluids in the emergency department, probably related to dehydration. CT scan of the head did not show any acute abnormality and she does not have any focal weakness. She is answering my questions. 2. Clinical dehydration, resolved. 3. Acute kidney injury, resolved. 4. Irritable bowel syndrome with multiple bouts of diarrhea two days ago. She has been having some small bowel movements during this hospitalization, watery, but as per the patient, this is quite normal for her. We will monitor this patient for one more night to make sure that she is not having more problems. 5. Known breast cancer, lung cancer, and brain metastasis. For now, we will monitor. 6. Malfunction of Port-A-Cath. Initially, we thought about calling surgery department to remove this Port-A-Cath but I contacted Dr. Frank and he will take care of it as an outpatient. He states that she is no longer using the Port-A-Cath. She is on treatment by mouth. cc: Elvis Goel MD
[2019-06-06] MEDS: SINGULAIR PO SCH (20:46)
[2019-06-07] MEDS: NS 1,000 ML IV SCH ×2 (01:09→01:10)
[2019-06-07] MEDS: XANAX PO SCH (01:10)
[2019-06-07 07:06] VITALS: BP 137/64
[2019-06-07 08:04] LABS: AGAP 10; BUN 11 mg/dL (8-22); CHLORIDE 106 mmol/L (98-107); COSMO 272; CREATININE 0.5 mg/dL (0.5-0.9); ESTIMATED GFR > 60; GLUCOSE 77 mg/dL (70-104); POTASSIUM 2.8 mmol/L (3.5-5.1); SODIUM 137 mmol/L (136-145); TCO2 21 mmol/L (25-35)
[2019-06-07 08:16] LABS: CALCIUM 6.4 mg/dL (8.8-10.2)
[2019-06-07] MEDS ORDERED: KLOR-CON PO ONE (08:26)
[2019-06-07] MEDS ORDERED: CALCIUM GLUCONATE 4.65 MEQ in NS 50 ML IV ONE (08:27)
[2019-06-07] MEDS: LIBRAX PO SCH (09:47)
[2019-06-07] MEDS: SYSTANE EYE DROPS BOTH EYES SCH (09:47)
[2019-06-07] MEDS: PRAVACHOL PO SCH (09:47)
[2019-06-07] MEDS: SODIUM CHLORIDE PO SCH (09:47)
[2019-06-07] MEDS: DITROPAN PO SCH (09:47)
[2019-06-07] MEDS: ASTELIN NASAL SPRAY NAS SCH (09:48)
[2019-06-07] MEDS: FLONASE NAS SCH (09:48)
[2019-06-07] MEDS: ARICEPT PO SCH (09:48)
--- NOTE | 2019-06-08 13:16 | DISCHARGE SUMMARY ---
ADMISSION DATE: 06/05/2019 DISCHARGE DATE: 06/07/2019 DISCHARGE DIAGNOSES: 1. Altered mental status, resolved. 2. Clinical dehydration, resolved. 3. Acute kidney injury, resolved. 4. History of irritable bowel syndrome with multiple bouts of diarrhea 2 days ago. 5. History of breast cancer, lung cancer, and brain metastasis. 6. Malfunction of Port-A-Cath. 7. Possible urinary tract infection. PROCEDURES PERFORMED: 1. Chest x-ray dated 06/05/2019, impression: Stable cardiomegaly. No acute process. 2. Head CT dated 06/05/2019, impression: No acute disease or change from prior. 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 Frank, IBS, a couple of recent admissions for hyponatremia, hypertension, CVA, and kidney stones. She reported that the night before admission, on 06/05/2019, she had 3 bouts of watery diarrhea, large. Her daughter-in- law, who is at the bedside, had seen her last night, and she felt that at that time, she was out of sorts secondary to not being able to keep up with the amount of diarrhea that she was having. They came back to check on her in the morning, and she had another episode of watery diarrhea, and was even more out of sorts. They assumed she was hyponatremic again because she was confused. They brought this patient to the emergency department. The workup did not reveal any electrolyte abnormalities, but showed a creatinine elevation of 1.1. Her CT scan and her chest x-ray did not show any acute issues either, but when we evaluated this patient in the emergency department, she was completely awake, alert, and she was oriented x3. She does have generalized weakness though. She was admitted to receive IV fluids. Unfortunately, while she was getting a head CT with contrast through her port, this infiltrated. I communicated with Dr. Frank, who states that since she is not using that port, just leave it and do not touch this anymore, and he will take care of this as an outpatient, so I canceled a surgery that we were planning to make with Surgery to remove the port. We started this patient on IV fluids. She was improving on a daily basis. We did multiple cultures and lab work, including Clostridium difficile toxin, Clostridium difficile antigen, culture, and white blood cell counts in the stool, and all of them were negative. Her urine culture result came back today positive for gram-negative rods. I communicated with the family member, Mrs. Pushpa Rivera, which I believe is the daughter. Her phone is [phone]. Since this patient has a medical history of dementia, on top of that she has been getting chemotherapy and she might be immunosuppressed, and she came in more confused, I have decided to give her a short course of antibiotics with levofloxacin 250 mg daily for 3 days. I sent already the prescription to the pharmacy, and I will monitor the culture. I explained to the daughter that we will start the treatment today, but we need to check on the results to see if this bacteria is sensitive or not to that medication. She agreed with that. The patient has been already discharged. She seems to be doing good at home. Today, this patient was found to be hypokalemic and also hypocalcemic, and I replaced both her calcium and her potassium. When I evaluated this patient in the morning, she wanted to go home today, and I agree with that. She seems to be stable. OBJECTIVE: Vital Signs: Temperature 97.4 degrees, pulse 57, respiratory rate 18, blood pressure 137/64, oxygen saturation 100% on room air. HEENT: Head normocephalic. No trauma. PERRLA. Neck: Supple. No JVD. No masses. Central trachea. Chest: Clear to auscultation. No wheezing. Some crepitus at the bases. Port-A-Cath on her chest. Abdomen: Soft, nontender, nondistended. No hepatosplenomegaly. Extremities: No edema, no clubbing, no cyanosis. Neurological: The patient is awake, alert. She is oriented x4. She is following commands. She does have unfortunately generalized weakness, which is chronic. LABORATORY DATA: Sodium 137, potassium 2.8, chloride 106, bicarbonate 21, BUN 11, creatinine 0.5, glucose 77, calcium 6.4. DISCHARGE MEDICATIONS: Xanax 0.5 mg p.o. at bedtime, Astelin nasal spray 2 spray intranasal b.i.d., Librax 1 capsule p.o. b.i.d., donepezil 10 mg p.o. b.i.d., Tarceva 100 mg p.o. b.i.d., Veramyst nasal spray 2 sprays nasally daily, Soothe lubricant eyedrops twice a day, levofloxacin 250 mg p.o. daily for 3 days, Singulair 10 mg p.o. at bedtime, Ditropan 5 mg p.o. t.i.d., pravastatin 20 mg p.o. daily. cc: Elvis Goel MD
== END 2019-06-07 11:33 | disposition home health service (06) | DRG 641 ==
LOC: ED 11:28 → EDIPHOLD 16:47 → 3N 19:06
PROVIDERS: ATTEND Internal Medicine